=== PATIENT | female | born 2005 | race Two or more races ===

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

== ENCOUNTER 2024-03-17 18:37 | Emergency (ER) | payer MEDICAID ==
[~2024-03-17] VITALS: Ht 160 cm; Wt 67.2 kg
[~2024-03-17 18:37] MED LIST: CEPH-510 PO; CEPH500C PO; IBUP-1455 PO
[2024-03-17 21:31] LABS: Basophils # (auto) 0 10 ^3/uL (0-0.2); Basophils % (auto) 0.3 % (0.0-2.0); Eosinophils # (auto) 0.1 10 ^3/uL (0-0.8); Hemoglobin 12.4 g/dL (12.2-16.2); Neutrophils # (auto) 5.2 10 ^3/uL (1.6-8.6)
[2024-03-17 21:33] LABS: Hematocrit 37.7 % (36.0-46.0); Lymphocytes % (auto) 33.4 % (10.0-50.0); Mean Corpuscular Hemoglobin 26.4 pg (28.0-32.0); Mean Corpuscular Hgb Conc. 32.9 g/dL (32.0-36.0); Mean Corpuscular Volume 80.4 fL (80.0-100.0); Monocytes # (auto) 0.6 10 ^3/uL (0-1.3); Monocytes % (auto) 6.4 % (0.0-12.0); Neutrophils % (auto) 58.9 % (37.0-80.0); Nucleated Red Blood Cells % 0.1 %; Red Blood Cells 4.69 10^6/uL (4.0-5.20); Red Cell Distribution Width 15.4 % (11.8-14.3); White Blood Cell 8.9 10^3/uL (4.4-10.8)
[2024-03-17 21:40] LABS: Alanine Aminotransferase 17 U/L (7-40); Albumin 4.7 g/dL (3.2-4.8); Alkaline Phosphatase 113 U/L (46-116); Anion Gap 6 (5-15); Aspartate Aminotransferase 16 U/L (13-40); BUN/Creatinine Ratio 8.2 (10.0-20.0); Bilirubin, Total 0.2 mg/dL (0.2-1.0); Blood Urea Nitrogen 5 mg/dL (9-23); Calcium 9.2 mg/dL (8.5-10.1); Carbon Dioxide 25 mmol/L (20-30); Chloride 107 mmol/L (98-107); Glucose 112 mg/dL (74-106); Potassium 3.2 mmol/L (3.5-5.1); Sodium 138 mmol/L (136-145); Total Protein 7.4 g/dL (5.7-8.2)
[2024-03-17] MEDS: KETOROLAC TROMETH 30 MG/ML 1ML VIAL IM ONE (22:30)
[2024-03-17] MEDS: IOHEXOL 300 MG/ML 100ML BOTTLE IJ ONE (22:35)
[2024-03-17] MEDS ORDERED: BACDST PO (23:00)
[2024-03-17] MEDS ORDERED: IBUP1TAB5 PO (23:22)
[2024-03-17 23:47] VITALS: BP 108/60; PULSE 62; RESP 18; TEMP 98.5; O2SAT 99
== END 2024-03-18 00:07 | disposition home or self-care (01) ==
LOC: ER 18:37
DX: H66.42 Suppurative otitis media, unspecified, left ear (principal); R51.9 Headache, unspecified; Z79.1 Long term (current) use of non-steroidal anti-inflammatories (NSAID); Z79.899 Other long term (current) drug therapy
CPT/HCPCS: 10060; 36415; 70487; 80053; 83605; 85025; 96372; 99285; J1885; Q9967